=== PATIENT | male | born 1965 | race Caucasian/White ===

== ENCOUNTER 2019-03-21 12:20 | Inpatient (IN) ==
[2019-03-21] MEDS ORDERED: ONDANSETRON INJ 2 MG/ML 2 ML VIAL IV PRN (13:13)
[2019-03-21] MEDS ORDERED: ACETAMINOPHEN 325 MG TAB PO PRN (13:13)
[2019-03-21] MEDS ORDERED: ZOLPIDEM TARTRATE 5 MG TAB PO PRN (13:13)
[2019-03-21] MEDS ORDERED: VANCOMYCIN CONSULT ACTIVE PRN ×2 (13:18)
[2019-03-21] MEDS ORDERED: HYDROmorphone INJ 0.5 MG/0.5 ML SYR IV PRN (13:24)
--- NOTE | 2019-03-21 13:41 | History and Physical Report ---
DATE OF ADMISSION: 03/22/2019 CHIEF COMPLAINT: Right knee pain and swelling. HISTORY OF PRESENT ILLNESS: This is a 53-year-old male patient who presented to the office today complaining about a 4-day history of right knee pain and swelling. He denies any injuries or trauma. He denies any fevers or chills. Can think of no mechanism for the symptoms. The patient was examined in the office today and aspirate was taken out of his knee. It appeared to be cloudy and somewhat infective-looking. We will admit the patient at this point in time for an incision and drainage of right knee prepatellar bursa likely secondary to infection. We will send the specimen off for culture, cell count and Gram stain. We will get medicine on board as well as infectious disease. PAST MEDICAL HISTORY: The patient is a healthy 53-year-old male with only history of a hiatal hernia. SOCIAL HISTORY: Half pack per day smoker, nondrinker. PAST SURGICAL HISTORY: Hernia repair. FAMILY HISTORY: Noncontributory. REVIEW OF SYSTEMS: Acute right knee pain and swelling. Otherwise, denies any shortness of breath, chest pain, nausea, vomiting or any other joint complaints. MEDICATIONS: The patient takes no medications. ALLERGIES: BEE VENOM. PHYSICAL EXAMINATION: GENERAL: Well-developed, well-nourished 53-year-old male in no acute distress. He is alert and oriented x3 and pleasant. HEENT: Normocephalic, atraumatic. Extraocular motions are intact. Pupils equal, reactive to light. HEART: Regular rate and rhythm, no murmurs. LUNGS: Clear. ABDOMEN: Soft, nontender, bowel sounds present. EXTREMITIES: Right knee he has got mild erythema around the knee area and the prepatellar bursa area. He has no active drainage. He is somewhat tender with full range of motion. Ligaments are all stable. Neurologically and neurovascularly he is intact in his right lower extremity. DIAGNOSES: Right knee prepatellar bursitis, likely infective. He also has a history of a hiatal hernia, otherwise a healthy 53-year-old male. PLAN: The patient will be admitted for an I&D of his right prepatellar bursa. We will send off cultures of the specimen. Pain control, infectious disease consult and follow up with him in the hospital.
--- OUTSIDE RECORDS SUMMARY | 2019-03-21 14:04 | External Medical Summary | Continuity of Care Document ---
:1965 Author Name Kwasi Delgado, Provider Address Unavailable Unavailable , Care Team Providers Name Role Phone Inessa Delgado, Provider Unavailable [email or web address] PCP, NO Unavailable Unavailable Robert Meyer Unavailable Unavailable Unavailable Unavailable Unavailable Problems Bursitis, prepatellar (726.65) (M70.40) Prepatellar effusion (719.06) (M25.469) Actinic keratosis (702.0) (L57.0) Scalp lesion (709.9) (L98.9) Pilonidal cyst without abscess (685.1) (L05.91) Acne (706.1) (L70.9) Allergies and Adverse Reactions No Known Drug Allergies (Allergy) Medications predniSONE 50 MG Oral Tablet; TAKE 1 TABLET DAILY D IRECTED. Danny Valentino Start: 06-Nov-2017 Quantity: 5 Refills: 0 Procedures History of Pilonidal Cyst Resection - Simple Status: Completed History of Hernia Repair Status: Complet ed Immunizations Immunizations not documented Family History Mother Family history of alcohol abuse (V61.41) (Z81.1) Status: Act flora Family history of malignant neoplasm (V16.9) (Z80.9) Status: Active Father Family history of alcohol abuse (V61.41) (Z81.1) Status: Act flora Family history of lung disease (V19.8) (Z83.6) Status: Activ e Brother Family history of alcohol abuse (V61.41) (Z81.1) Status: Act flora Family history of Drug abuse (305.90) (F19.10) Status: Activ e Social History - Smoking Status Smoker. current status unknown Plan of Treatment Planned Observations Planned Goals not documented Results No Known Results Results not documented Encounters Appointment; Jo-Ann Valentino M.D. 06-Nov-2017 16:30 Encounter Diagnosis: Problem not documented Appointment; Jo-Ann Valentino M.D. 18-Jul-2017 16:30 Encounter Diagnosis: Problem not documented Appointment; Aristeo Macario DO 11-May-2017 10:30 Encounter Diagnosis: Problem not documented
[2019-03-21] MEDS ORDERED: PATIENT'S HEIGHT AND/OR WEIGHT NEEDED SCH (14:15)
[2019-03-21] MEDS: PATIENT'S HEIGHT AND/OR WEIGHT NEEDED SCH ×2 (14:50→15:51)
[2019-03-21] MEDS: SODIUM CHLORIDE 0.9% 1000ML 1,000 ML IV SCH (14:54)
[2019-03-21 14:57] LABS: Basophils # (auto) 0.01 K/uL (0-0.2); Basophils % (auto) 0.1 %; Eosinophils # (auto) 0.13 K/uL (0-0.5); Eosinophils % (auto) 0.8 %; Hematocrit (blood only) 43.4 % (42-52); Hemoglobin 15.1 g/dL (14.0-18.0); Immature Granulocytes # (auto) 0.05 K/uL (0.00-0.02); Immature Granulocytes % (auto) 0.3 %; Lymphocytes % (auto) 16.9 %; Mean Corpuscular Hemoglobin 33.5 pg (25-34); Mean Corpuscular Volume 96.2 fL (80-100); Mean Platelet Volume 8.9 fL (7.4-10.4); Monocytes # (auto) 1.41 K/uL (0.11-0.59); Monocytes % (auto) 8.8 %; Neutrophils # (auto) 11.72 K/uL (1.4-6.5); Neutrophils % (auto) 73.1 %; Platelet Count 242 K/uL (130-400); RDW Coefficient of Variation 13.5 % (11.5-14.5); RDW Standard Deviation 47.8 fL (36.4-46.3); Red Blood Count 4.51 M/uL (4.7-6.1); White Blood Count 16.02 K/uL (4.8-10.8)
[2019-03-21] MEDS ORDERED: VANCOMYCIN HCL 1,500 MG in SODIUM CHLORIDE 0.9% 500 ML IV ONE (15:00)
[2019-03-21 15:06] LABS: Mean Corpuscular Hgb Conc 34.8 g/dL (32-36)
[2019-03-21 15:13] LABS: BUN Creatinine Ratio 15.1 (10-20); Calcium 9.6 mg/dl (8.5-10.1); Est GFR (African American) 120.5
--- NOTE | 2019-03-21 15:13 | Infectious Disease Consult ---
Date of Consultation March 21, 2019 Assessment & Plan (1) Septic arthritis: continue IV vanco for now, follow cultures/or findings. History of Present Illness Attending Physician: Logan Boles MD pt admitted from ortho office due to purulent aspiration of right knee. has h/o bursitis, has knee pain x 4 days, no trauma, saw ortho for aspiration, cloudy fluid noted, sent for admission and OR in am. no f/c at home, no abd pain, no n/v/d. no cp, sob, cough. otherwise feels well. on vanco, toleraitng well. labs pending. Allergies Allergy/AdvReac Type Severity Reaction Status Date / Time No Known Allergies Allergy Unverified 06/01/11 16:05 Home Medications Home Medications Medication Instructions Recorded Confirmed Type None (Patient States No Home Meds) #0 06/01/11 History Patient History Medical History No known health problems Surgical History History of herniorrhaphy Social History Preferred Language: Japanese Communication Ability: Effective [employer] Services Required: No Beliefs That Will Affect Care: None Current Living Situation: Spouse Other Information That Helps Us Care for You: No Feels Safe at Home: Yes Smoking Status: Current every day smoker Tobacco Type: cigarettes ; Do You Dip or Chew Tobacco: No ; Second Hand Exposure: No ; Hx Alcohol Use: No Hx Substance Use: No Review of Systems Review of Systems: All systems reviewed & are unremarkable except as noted in HPI & below Physical Exam Constitutional: WD/WN, vitals as above Eyes: PERRL, conjunctivae normal, anicteric sclerae ENMT: external ear and nose normal, oropharynx normal Neck: normal visual inspection Respiratory: normal respiratory effort, lungs clear to auscultation Cardiovascular: RRR, no murmur, no edema Gastrointestinal (Abdomen): normal bowel sounds, soft, nontender, no hepatosplenomegaly Musculoskeletal: no cyanosis or clubbing, extremities motor strength 5/5 Skin: + wound (knee brusing noted, warm tender) Psychiatric: A+Ox3, euthymic affect Results & Data ([facility]) Vital Signs (Past 12 Hours) Vital Signs Temp Pulse Resp BP Pulse Ox 03/21/19 14:58 36.9 C 79 16 106/66 98 03/21/19 14:20 36.7 C 88 18 118/70 97 PG Care Time/CCT Total # of Minutes Spent Total Time Spent with Patient: Total time spent is greater than 50% in coordi nation of care (as documented) at patient's floor/unit and/or counseling patient: Coding Level of Care Code 65979 Inpt Consult Level 4 Diagnoses Septic arthritis M00.9
--- NOTE | 2019-03-21 15:26 | Pharmacy Report ---
Pharmacy Abx Initial Consult - Date of Service March 21, 2019 - Pharmacy Dosing Scope Date of Consult: 03/21/2019 Consultation requested by: Dr. Boles Pharmacy is consulted to initiate vancomycin IV dosing therapy, order appropriate labs and adjust drug dose/frequency. - Subjective The patient is a 53 year old M admitted on 03/21/19 13:55 with septic arthritis. - Objective Height: 5 ft 5 in Weight: 58.786 kg Vital Signs (Past 12hrs): Vital Signs Temp Pulse Resp BP Pulse Ox 03/21/19 14:58 36.9 C 79 16 106/66 98 03/21/19 14:20 36.7 C 88 18 118/70 97 Lab Results (24hrs): Laboratory Tests (24 Hours) 03/21/19 03/21/19 14:36 14:36 WBC 16.02 H Neut # (Auto) 11.72 H Creatinine 0.79 Est Cr Clr Drug Dosing 92.0 Micro Results: 03/21/19 12:30 Gram Stain - Pending Knee,Right Aerobic and Anaerobic Culture - Pending 03/21/19 14:47 Aerobic Blood Culture - Pending Blood Anaerobic Blood Culture - Pending 03/21/19 14:36 Aerobic Blood Culture - Pending Blood Anaerobic Blood Culture - Pending - Assessment & Plan Assessment 53 year old M admitted with possible septic arthritis of knee Plan vancomycin for treatment of septic arthritis Vancomycin IV Patient meets criteria for vancomycin AUC dosing nomogram AUC/SHAHRIAR is the preferred PK/PD target for vancomycin * Target AUC/SHAHRIAR = 400-600 * AUC guided dosing is effective and associated with decreased risk of nephrotoxicity * Trough levels poorly correlate with AUC/SHAHRIAR and trough monitoring has been associated with increased risk of nephrotoxicity Pharmacy will continue to follow and will adjust dose/frequency as necessary. Thank you.
[2019-03-21] MEDS ORDERED: PIPERACILL/TAZOBAC CONSULT ACTIVE PRN (17:56)
[2019-03-21] MEDS ORDERED: PIPERACILLIN/TAZOBACTAM 4.5 GM in DEXTROSE 5% 100 ML IV ONE (18:15)
[2019-03-21] MEDS: PIPERACILLIN/TAZOBACTAM 3.375 GM in DEXTROSE 5% 100 ML IV SCH (22:45)
[2019-03-22] MEDS: VANCOMYCIN HCL 1,250 MG in SODIUM CHLORIDE 0.9% 250 ML IV SCH ×2 (03:15→15:52)
[2019-03-22] MEDS: SODIUM CHLORIDE 0.9% 1000ML 1,000 ML IV SCH ×3 (03:15→22:35)
[2019-03-22] MEDS: PIPERACILLIN/TAZOBACTAM 3.375 GM in DEXTROSE 5% 100 ML IV SCH ×3 (06:19→22:03)
[2019-03-22 06:53] LABS: Creatinine Clr Calc Pharmacy 90.8 ml/min; Est GFR (African American) 119.9; Est GFR (Non-African American) 103.4
--- NOTE | 2019-03-22 08:15 | Electrocardiogram Report ---
Test Reason : Blood Pressure : / mmHG Vent. Rate : 079 BPM Atrial Rate : 079 BPM P-R Int : 146 ms QRS Dur : 090 ms QT Int : 348 ms P-R-T Axes : 062 077 063 degrees QTc Int : 399 ms Normal sinus rhythm Normal ECG No previous ECGs available Confirmed by Blas Pope ([id number]) on 03/22/2019 8:15:21 AM Referred By: Logan Boles Confirmed By:Blas Pope
--- NOTE | 2019-03-22 09:02 | Anesthesiology Consultation ---
Date of Service March 22, 2019 Assessment & Plan (1) Encounter for pre-operative examination: Chart Review Chart Review: Acceptable Risk for Surgery History Surgery Operation Date: 03/22/19 08:45 Proposed Procedures p Right Knee Incision and Drainage Prepatella Bursitis - Jan Cm M.D. Height/Weight Height: 5 ft 5 in Weight: 58.786 kg Allergies Allergy/AdvReac Type Severity Reaction Status Date / Time No Known Allergies Allergy Unverified 06/01/11 16:05 Medications Home Medications Medication Instructions Recorded Confirmed Last Taken None (Patient States No Home Meds) #0 06/01/11 Unknown Active Medications Generic Name Dose Route Start Last Admin Trade Name Freq PRN Reason Stop Dose Admin Sodium Chloride 1,000 mls @ 100 mls/hr 03/21/19 13:15 03/22/19 05:27 Nss 1000ml IV 04/20/19 13:14 100 mls/hr .Q10H ABIMAEL Infusion Vancomycin HCl 1,250 mg/ 275 mls @ 125 mls/hr 03/22/19 04:00 03/22/19 05:27 Sodium Chloride IV 05/03/19 03:59 Infused Q12H ABIMAEL Infusion Piperacillin Sod/Tazobactam 115 mls @ 28.75 mls/hr 03/21/19 23:00 03/22/19 06:19 Sod 3.375 gm/ Dextrose IV 05/02/19 22:59 28.8 mls/hr Q8H ABIMAEL Administration Protocol NPO Date Last Intake of Fluids: 03/22/19 Time Last Intake of Fluids: 00:00 Date Last Intake of Solids: 03/22/19 Time Last Intake of Solids: 00:00 Past Medical History Medical History No known health problems Past Surgical History Surgical History History of herniorrhaphy Social History Smoking Status: Current every day smoker tobacco type: cigarettes Do You Dip or Chew Tobacco: No Hx Alcohol Use: No Hx Substance Use: No Physical Exam Vital Signs Last Vital Signs Temp 37.4 C 03/22/19 07:06 Pulse 79 03/22/19 07:06 Resp 18 03/22/19 07:06 BP 109/64 03/22/19 07:06 Pulse Ox 96 03/22/19 07:06 Testing Laboratory Results 03/21/19 14:36 03/22/19 05:51 03/21/19 12:30 Gram Stain - Final Knee,Right Electrocardiogram Date: 03/21/19 Findings: + NSR @ (46)
[2019-03-22] MEDS ORDERED: ATROPINE SULFATE 0.1 MG/ML 10ML SYR IV PRN (09:21)
[2019-03-22] MEDS ORDERED: HYDROmorphone INJ 1 MG/ML SYRINGE IV PRN (09:21)
[2019-03-22] MEDS ORDERED: ONDANSETRON INJ 2 MG/ML 2 ML VIAL IV PRN (09:21)
[2019-03-22] MEDS ORDERED: KETOROLAC 30 MG/ML VIAL IV PRN (09:21)
[2019-03-22] MEDS ORDERED: MIDAZOLAM HCL 1 MG/ML 2ML VIAL ONE (09:25)
[2019-03-22] MEDS ORDERED: fentaNYL citrate 100 MCG/2 ML VIAL ONE (09:25)
[2019-03-22] MEDS ORDERED: LIDOCAINE HCL 2% 2 ML VIAL/AMP(20MG/ML) INFIL ONE (09:25)
[2019-03-22] MEDS ORDERED: PROPOFOL IV EMULSION 10 MG/ML 20 ML VIAL IV ONE (09:25)
[2019-03-22] MEDS ORDERED: ONDANSETRON INJ 2 MG/ML 2 ML VIAL ONE (09:25)
--- NOTE | 2019-03-22 09:36 | History & Physical Bridge Note ---
Date of Service March 22, 2019 History & Physical Bridge Note I have examined the patient, reviewed the History & Physical and in the interval since the performance of the History & Physical I have noted the following changes of clinical significance: no changes noted
[2019-03-22] MEDS ORDERED: BACITRACIN INJ 50,000 UNIT VIAL ONE (09:41)
--- NOTE | 2019-03-22 10:27 | Post Operative Brief Note ---
Immediate Post Op Note v1 Date of Surgery March 22, 2019 Pre & Post Diagnosis Operation Date: 03/22/19 08:45 Pre-Op Diagnosis: Right Knee Prepatellar Abscess Post-Op Diagnosis: Right Knee Prepatellar Abscess I identified the patient and participated in the time-out.: Yes Procedure Operation Date: 03/22/19 08:45 Actual Procedures p Right Knee Incision and Drainage Prepatella Bursitis(Right) - Jan Cm M.D. Surgeon Jan Cm Radiation Physicist None Estimated Blood Loss 5 Findings Consistent with Post-Op Diagnosis Drains Hemovac Drain (single trocar, 10 Fr)
--- NOTE | 2019-03-22 10:55 | Operative Report ---
Post Operative Report Pre & Post Diagnosis Operation Date: 03/22/19 08:45 Pre-Op Diagnosis: Right Knee Prepatellar Abscess Post-Op Diagnosis: Right Knee Prepatellar Abscess in the setting of pre-existing cystic mass I identified the patient and participated in the time-out.: Yes Procedure Operation Date: 03/22/19 08:45 Actual Procedures Right Knee Irrigation and Debridement of Infected Prepatellar Bursitis (88808) - Jan Cm M.D. Surgeon Jan Cm Director Sports None Estimated Blood Loss 5 Findings Consistent with Post-Op Diagnosis Chronic-appearing cystic mass in the area, possibly consistent with pre-existing epidermal inclusion cyst Specimens Culture swab for aerobic and anaerobic culture and Gram stain Right knee mass for permanent pathologic identification Drains Medium Hemovac Anesthesia Type General Complications none Disposition Disposition: Recovery Room Indications Mr. Roberson is a 53-year-old male who developed worsening pain, swelling, and redness over the anterior aspect of his right knee over the past several days. He was seen in clinic by Dr. Boles, who felt that the patient required an irrigation and debridement surgery, and he asked me to help with this. The patient tells me that he has had some sort of mass or fullness in that area for several years with intermittent swelling, but never to this degree before. Preoperative examination showed evidence of an abscess in the prepatellar bursa area. No evidence of a knee joint effusion or septic knee. Risks, benefits, and alternatives of surgery were explained in detail. The patient understood all this and wished to proceed. Description of Procedure Patient was identified in the preoperative holding area. Operative extremity was marked. Patient was then brought back to the operating room, and general anesthesia was induced without complication. Tourniquet was placed on the right upper thigh. Leg was then prepped and draped in a standard sterile fashion using Chlorhexidine prep. The leg was then exsanguinated with an Esmarch, and the tourniquet was inflated. I made a longitudinal incision directly over the abscess on the anterior aspect of the knee. Immediately upon skin incision, there was a manzo of purulent fluid from the abscess. Culture swab was obtained of this fluid for Gram stain, aerobic culture, and anaerobic culture. Also immediately visible was what appeared to be a chronic cystic structure immediately below the skin. There was a hardened, almost calcified cyst wall. There was purulent fluid within and immediately surrounding this. The cyst was excised in total and sent for permanent pathologic identification. My impression was that this might have been a chronic epidermal inclusion cyst that subsequently got infected. I then aggressively sharply debrided the abscess cavity with knife, curette, and rongeur. The abscess cavity did not violate the knee joint capsule. After thorough debridement was performed, I then copiously irrigated the wound with sterile saline via pulsatile irrigation. I then inserted a Hemovac drain and sewed it into place. The incision was then closed over the drain with 3-0 Prolene suture. Sterile dressings were then applied with Xeroform, sterile gauze, sterile Webril, and Stewart wrap. The drapes were removed, the patient was awakened from anesthesia, and taken to the Post Anesthesia Care Unit in stable condition. There were no immediate complications from the procedure. I was present and scrubbed for the entire procedure. I attest to the content of the Intraoperative Record and any orders documented therein. Any exceptions are noted below.
--- NOTE | 2019-03-22 11:21 | Anesthesiology Progress Note ---
Date of Service March 22, 2019 Anesthesia Post Procedure Vital Signs Vital Signs: Temp Pulse Pulse Resp BP Pulse Ox 03/22/19 11:10 36.6 C 69 18 109/63 98 03/22/19 11:00 76 18 115/66 99 03/22/19 10:50 60 16 96/64 L 100 03/22/19 10:40 63 12 97/58 L 100 03/22/19 10:31 36.8 C 68 14 90/55 L 100 03/22/19 07:06 37.4 C 79 18 109/64 96 03/22/19 03:32 37.4 C 96/52 L 03/21/19 23:25 37.9 C H 78 16 98/52 L 94 03/21/19 14:58 36.9 C 79 16 106/66 98 03/21/19 14:20 36.7 C 88 18 118/70 97 Transfer of Care Handoff Completed per policy Notes Mental Status: alert / awake / arousable Patient Amnestic to Procedure: Yes Nausea / Vomiting: adequately controlled Pain: adequately controlled Airway Patency, RR, SpO2: stable & adequate BP & HR: stable & adequate Hydration State: stable & adequate Anesthetic Complications: no major complications apparent
[2019-03-22] MEDS: PANTOprazole 40 MG TAB PO SCH (11:25)
[2019-03-22] MEDS: OXYCODONE/ACETAMINOPHEN 5mg/325mg TAB PO PRN (16:00)
[2019-03-23] MEDS: OXYCODONE/ACETAMINOPHEN 5mg/325mg TAB PO PRN ×2 (00:46→08:42)
[2019-03-23] MEDS ORDERED: VANCOMYCIN TROUGH ONE (03:30)
[2019-03-23] MEDS: VANCOMYCIN HCL 1,250 MG in SODIUM CHLORIDE 0.9% 250 ML IV SCH ×2 (04:16→16:04)
[2019-03-23 04:43] LABS: Creatinine Clr Calc Pharmacy 90.8 ml/min; Est GFR (African American) 119.9; Est GFR (Non-African American) 103.4
[2019-03-23] MEDS: PIPERACILLIN/TAZOBACTAM 3.375 GM in DEXTROSE 5% 100 ML IV SCH ×3 (06:57→22:24)
--- NOTE | 2019-03-23 08:40 | Pharmacy Report ---
Pharmacy Abx Dose Progress Nt - Date of Service March 23, 2019 - Pharmacy Dosing Scope The patient is currently receiving the following antimicrobial agents per Pharmacy consult: Vancomycin 1,250 mg IV/PO every 12 hours - Objective Vital Signs (Past 12hrs): Vital Signs Temp Pulse Resp BP Pulse Ox 03/23/19 08:20 36.8 C 67 18 104/59 L 97 03/23/19 05:00 95/59 L 03/23/19 03:16 36.6 C 63 16 88/44 L 95 03/22/19 23:00 36.7 C 67 16 105/66 96 Lab Results (24hrs): Laboratory Tests (24 Hours) 03/23/19 03/23/19 03:46 03:46 Creatinine 0.80 Est Cr Clr Drug Dosing 90.8 Vancomycin Trough 9.8 Micro Results: 03/21/19 12:30 Gram Stain - Final Knee,Right 03/22/19 10:15 Gram Stain - Final Knee,Right Aerobic and Anaerobic Culture - Pending - Assessment & Plan Assessment 53 year old M receiving Vancomycin for treatment of septic arthritis Day # 3 of antimicrobial therapy Plan Vancomycin IV * Patient meets criteria for vancomycin AUC dosing nomogram * AUC/SHAHRIAR is the preferred PK/PD target for vancomycin * Target AUC/SHAHRIAR = 400-600 * Trough level of 9.8 mcg/mL is predicted to achieve target AUC/SHAHRIAR. Level is not quite at steady state (prior to 3rd maintenance dose) and further vancomycin accumulation likely to occur. * Will continue current dosing and re-check level tomorrow (prior to 5th maintenance dose) * AUC guided dosing is effective and associated with decreased risk of nephrotoxicity * Trough levels poorly correlate with AUC/SHAHRIAR and trough monitoring has been associated with increased risk of nephrotoxicity Pharmacy will continue to follow and will adjust dose/frequency as necessary. Thank you.
[2019-03-23] MEDS: PANTOprazole 40 MG TAB PO SCH (08:42)
[2019-03-23] MEDS: SODIUM CHLORIDE 0.9% 1000ML 1,000 ML IV SCH (10:25)
--- NOTE | 2019-03-23 12:19 | Orthopedic Progress Note ---
Date of Service March 23, 2019 Assessment & Plan (1) Septic prepatellar bursitis of right knee: Postoperative day 1 status post irrigation and debridement of right knee prepatellar bursitis. Intraoperative cultures are still pending, but preoperative cultures growing Corynebacterium. Will need infectious disease input as to an appropriate home antibiotic regimen. We will leave him on his IV antibiotics for now. He may get out of bed and weight-bear as tolerated and move his knee as tolerated. Admission and Anticipated Discharge Date Admission Date: March 21, 2019 Subjective Patient doing well. No complaints. Pain is well controlled. No issues overnight. Physical Exam Physical Exam: Right knee dressings were taken down and changed. Hemovac drain was removed. Incision is healing well. No active drainage. Decreased erythema and swelling. Results & Data ([facility]) Vital Signs (Past 12 Hours) Vital Signs Temp Pulse Resp BP Pulse Ox 03/23/19 08:20 36.8 C 67 18 104/59 L 97 03/23/19 05:00 95/59 L 03/23/19 03:16 36.6 C 63 16 88/44 L 95 Laboratory Results Preoperative cultures are growing Corynebacterium but still preliminary. Intraoperative cultures are still pending. Diagnostic Findings No significant output from Hemovac drain.
[2019-03-24] MEDS ORDERED: VANCOMYCIN TROUGH ONE (03:30)
[2019-03-24] MEDS: VANCOMYCIN HCL 1,250 MG in SODIUM CHLORIDE 0.9% 250 ML IV SCH ×2 (03:53→16:49)
[2019-03-24] MEDS: OXYCODONE/ACETAMINOPHEN 5mg/325mg TAB PO PRN (04:02)
[2019-03-24 04:03] LABS: Creatinine Clr Calc Pharmacy 72.7 ml/min; Est GFR (African American) 100.6; Est GFR (Non-African American) 86.8
[2019-03-24] MEDS: PIPERACILLIN/TAZOBACTAM 3.375 GM in DEXTROSE 5% 100 ML IV SCH ×3 (06:18→22:27)
--- NOTE | 2019-03-24 08:32 | Anesthesiology Progress Note ---
Date of Service March 24, 2019 Anesthesia Post Procedure Vital Signs Vital Signs: Temp Pulse Pulse Resp BP BP Pulse Ox 03/24/19 07:30 36.7 C 54 L 16 104/62 97 03/23/19 23:20 37.3 C 76 16 102/62 96 03/23/19 15:39 36.7 C 70 18 101/62 95 Pain Intensity Right Knee: Pain Intensity: 2 Notes Mental Status: alert / awake / arousable and participated in evaluation Patient Amnestic to Procedure: Yes Nausea / Vomiting: adequately controlled Pain: adequately controlled Airway Patency, RR, SpO2: stable & adequate BP & HR: stable & adequate Hydration State: stable & adequate Anesthetic Complications: no major complications apparent and Pt Satisfied with anesthetic care
[2019-03-24] MEDS: PANTOprazole 40 MG TAB PO SCH (08:42)
--- NOTE | 2019-03-24 09:23 | Infectious Disease Progress Nt ---
Date of Service March 24, 2019 Assessment & Plan (1) Septic arthritis: continue IV vanco for now, follow cultures/or findings. If OR culture negative, would suggest Dalvance 1500mg IV x 2 at [facility] post d/c. Admission and Anticipated Discharge Date Admission Date: March 21, 2019 Subjective pt wound culture growing skin deanna only, blood cultures negative, OR culture with few gpc on gram stain but ngtd on culture. remains on IV abx, tolerating well. afebrile. Results & Data ([facility]) Vital Signs (Past 12 Hours) Vital Signs Temp Pulse Pulse Resp BP BP Pulse Ox 03/24/19 07:30 36.7 C 54 L 16 104/62 97 03/23/19 23:20 37.3 C 76 16 102/62 96 Laboratory Results Microbiology 03/21/19 12:30 Knee,Right Gram Stain - Final 03/21/19 12:30 Knee,Right Aerobic and Anaerobic Culture - Preliminary Corynebacterium species 03/21/19 14:36 Blood Aerobic Blood Culture - Preliminary No growth in Aerobic bottle after 48 hours. 03/21/19 14:36 Blood Anaerobic Blood Culture - Preliminary No growth in Anaerobic bottle after 48 hours. 03/21/19 14:47 Blood Aerobic Blood Culture - Preliminary No growth in Aerobic bottle after 48 hours. 03/21/19 14:47 Blood Anaerobic Blood Culture - Preliminary No growth in Anaerobic bottle after 48 hours. 03/22/19 10:15 Knee,Right Gram Stain - Final 03/22/19 10:15 Knee,Right Aerobic and Anaerobic Culture - Preliminary No growth to date. PG Care Time/CCT Total # of Minutes Spent Total Time Spent with Patient: Total time spent is greater than 50% in coordination of care (as documented) at patient's floor/unit and/or counseling patient: Coding Level of Care Code 01791 Subseq Hosp Care Lvl 1 Diagnoses Septic arthritis M00.9
--- NOTE | 2019-03-24 09:51 | Orthopedic Progress Note ---
Date of Service March 24, 2019 Assessment & Plan (1) Septic prepatellar bursitis of right knee: POD #2, I&D right knee pre patellar bursitis. Per ID, can be d/c'd with 2 doses of IV Dalvance 1500mg at [facility] Pain control. WBAT Right LE Wound care. Admission and Anticipated Discharge Date Admission Date: March 21, 2019 Subjective pt wound culture growing skin deanna only, blood cultures negative, OR culture with few gpc on gram stain but ngtd on culture. remains on IV abx, tolerating well. afebrile. POD #2, Patient feeling well. Denies SOB, CP, N/V. Pain minimal. Physical Exam Physical Exam: Right knee incision c/d/i, no drainage. No erythema. sutures in tact, skin edges approx well. Gentle ROM in tact w minimal pain. No calf tenderness. A&Ox3. Results & Data ([facility]) Vital Signs (Past 12 Hours) Vital Signs Temp Pulse Pulse Resp BP BP Pulse Ox 03/24/19 07:30 36.7 C 54 L 16 104/62 97 03/23/19 23:20 37.3 C 76 16 102/62 96
--- NOTE | 2019-03-24 11:05 | Pharmacy Report ---
Pharmacy Abx Dose Short Note - Date of Service March 24, 2019 - Assessment & Plan Assessment 53 year old M receiving empiric vancomycin and Zosyn for treatment of septic arthritis of the right knee Day # 4 of antimicrobial therapy. s/p I&D on 03/22/19 Afebrile for 48 hours, no signs of clinical worsening Micro: blood cultures negative to date, initial culture of right knee (03/21): Corynebacterium species Plan Vancomycin: * Patient meets criteria for vancomycin AUC dosing nomogram * AUC/SHAHRIAR is the preferred PK/PD target for vancomycin * Target AUC/SHAHRIAR = 400-600 * Trough level of 12.1 mcg/mL is predicted to achieve target AUC/SHAHRIAR * AUC guided dosing is effective and associated with decreased risk of nephrotoxicity * Trough levels poorly correlate with AUC/SHAHRIAR and trough monitoring has been associated with increased risk of nephrotoxicity Zosyn: * Continue 3.375 g IV q8h based on estimated CrCl and BMI Pharmacy will continue to follow and will adjust dose/frequency as necessary. Thank you.
[2019-03-25] MEDS: VANCOMYCIN HCL 1,250 MG in SODIUM CHLORIDE 0.9% 250 ML IV SCH ×2 (04:00→15:56)
[2019-03-25 06:53] LABS: Creatinine Clr Calc Pharmacy 88.6 ml/min; Est GFR (African American) 118.7; Est GFR (Non-African American) 102.4
[2019-03-25] MEDS: PIPERACILLIN/TAZOBACTAM 3.375 GM in DEXTROSE 5% 100 ML IV SCH ×3 (07:15→22:27)
[2019-03-25] MEDS: OXYCODONE/ACETAMINOPHEN 5mg/325mg TAB PO PRN (08:16)
--- NOTE | 2019-03-25 08:19 | Orthopedic Progress Note ---
Date of Service March 25, 2019 Assessment & Plan (1) Septic prepatellar bursitis of right knee: POD #3, I&D right knee pre patellar bursitis. Per ID, can be d/c'd with 2 doses of IV Dalvance 1500mg at [facility] Awaiting insurance approval for the antibiotics, then D/C. Pain control. WBAT Right LE Wound care. Admission and Anticipated Discharge Date Admission Date: March 21, 2019 Subjective pt wound culture growing skin deanna only, blood cultures negative, OR culture with few gpc on gram stain but ngtd on culture. remains on IV abx, tolerating well. afebrile. POD #2, Patient feeling well. Denies SOB, CP, N/V. Pain minimal. Physical Exam Physical Exam: right knee dressings c/d/i, no drainage, no erythema. Toes ankle mobile. No calf tenderness. A&Ox3. Results & Data ([facility]) Vital Signs (Past 12 Hours) Vital Signs Temp Pulse Pulse Resp BP Pulse Ox 03/25/19 07:19 36.6 C 55 L 16 120/74 97 03/24/19 23:10 36.4 C L 72 16 110/62 95
[2019-03-25] MEDS: PANTOprazole 40 MG TAB PO SCH (10:01)
--- NOTE | 2019-03-25 22:15 | Consultation Report ---
DATE OF CONSULTATION: 03/25/2019 REASON FOR THE CONSULT: Penile swelling. HISTORY OF PRESENTATION: The patient is a 53-year-old male who was admitted 4 days ago with a history of having a knee that was drained and having infection in his knee. The patient has been getting IV fluid and IV antibiotics. He noted 2 days ago there was some swelling in his penis which has come and gone. The patient denies any pain. There is no erythema, the swelling is predominantly eventually in the coronal area. The patient denies any kind of trauma to this area or any kind of previous infections in this area. The patient again notes that at times it gets smaller and larger . He has been sedentary in bed for most of this admission. Again, he has been getting a fair amount of fluid. PHYSICAL EXAMINATION: GENERAL: The patient is a well-developed male in no apparent distress. Penis is circumcised. He has some edema of the ventral area just below the glans and the coronal area with some swelling. It looks like excess fluid. He does not have any significant pedal edema. Testes are descended bilaterally. He has no other urologic complaints. ASSESSMENT: Transitory penile swelling secondary to fluid overload. PLAN: Keep the penis elevated as much as possible. Will call if the pain becomes worse or it has any erythema.
[2019-03-26] MEDS ORDERED: VANCOMYCIN TROUGH ONE (03:30)
[2019-03-26] MEDS: VANCOMYCIN HCL 1,250 MG in SODIUM CHLORIDE 0.9% 250 ML IV SCH (03:57)
[2019-03-26] MEDS: PIPERACILLIN/TAZOBACTAM 3.375 GM in DEXTROSE 5% 100 ML IV SCH (06:25)
--- NOTE | 2019-03-26 08:17 | Orthopedic Progress Note ---
Date of Service March 26, 2019 Assessment & Plan (1) Septic prepatellar bursitis of right knee: POD #4, I&D right knee pre patellar bursitis. Per ID, can be d/c'd with 2 doses of IV Dalvance 1500mg at [facility] Awaiting insurance approval for the antibiotics, then D/C. Pain control. WBAT Right LE Wound care. Admission and Anticipated Discharge Date Admission Date: March 21, 2019 Subjective pt wound culture growing skin deanna only, blood cultures negative, OR culture with few gpc on gram stain but ngtd on culture. remains on IV abx, tolerating well. afebrile. POD #4, Patient feeling well. Denies SOB, CP, N/V. Pain minimal. Physical Exam Physical Exam: Right LE incision c/d/i. Sutures in tact, skin edges approx well. No erythema, no drainage. N/V+ Right LE. Results & Data ([facility]) Vital Signs (Past 12 Hours) Vital Signs Temp Pulse Resp BP Pulse Ox 03/25/19 23:15 36.7 C 58 L 16 111/66 97
[2019-03-26] MEDS: PANTOprazole 40 MG TAB PO SCH (08:27)
[2019-03-26] MEDS: OXYCODONE/ACETAMINOPHEN 5mg/325mg TAB PO PRN (08:27)
--- NOTE | 2019-03-26 09:09 | Pharmacy Report ---
Pharmacy Abx Dose Short Note - Date of Service March 26, 2019 - Assessment & Plan Assessment * 53 year old M receiving empiric vancomycin and Zosyn for treatment of septic arthritis of the right knee s/p I&D on 03/22/19 * Day # 6 of antimicrobial therapy. * Afebrile since 03/22, no signs of clinical worsening * 03/21 and 03/22 R knee cultures with Corynebacterium +/- Finegoldia magna * ID following - plan to discharge on dalbavancin. * Discharge planned once insurance approval process for dalbavancin complete Plan * Continue vancomycin 1250 mg IV q12h * Repeat trough in ~3-5 days, or sooner if renal function changes. Will continue to check SCr often 2nd increase risk of TIM with combination Zosyn/vancomycin Pharmacy will continue to follow and will adjust dose/frequency as necessary. Thank you.
== END 2019-03-26 11:56 | disposition home or self-care (01) | DRG 502 ==
LOC: 3W 13:55